=== PATIENT | male | born 1970 | race Caucasian/White ===

== ENCOUNTER 2020-10-29 06:21 | Day surgery (SDC) | payer MEDICAID ==
[2020-10-29] MEDS ORDERED: Sodium Chloride 0.9% 1,000 ML IV SCH (07:00)
[2020-10-29] MEDS ORDERED: Propofol 200 MG/20 ML SDV ONE (07:29)
[2020-10-29] MEDS ORDERED: fentaNYL 100 MCG/2 ML SDV ONE (07:29)
[2020-10-29] MEDS ORDERED: Midazolam 1 MG/ML 2 ML SDV ONE (07:29)
--- NOTE | 2020-10-29 13:48 | OR ---
DATE OF PROCEDURE: 10/29/2020 SURGEON: Markus Christianson MD PROCEDURE: Colonoscopy. FINDINGS: Normal colonoscopy. COMPLICATIONS: None. IT SERVICE TECHNICIAN: None. PREOPERATIVE DIAGNOSIS: Screening colonoscopy. POSTOPERATIVE DIAGNOSIS: Screening colonoscopy. RISKS: Risks, benefits, alternatives, and limitations including, but not limited to infection, bleeding, perforation, false positives and false negatives were explained to the patient who wished to proceed. PROCEDURE IN DETAIL: The patient was placed in left lateral decubitus position. Digital rectal exam was performed without abnormality. The scope was introduced and advanced atraumatically to the ileocecal valve. Photo was taken. The scope was brought back to the ascending, transverse, descending colon, and retroflexed. No old or new blood. No masses. No polyps. No diverticulosis. No abnormalities on retroflexion. Greater than 8 minutes was spent removing the scope. The patient tolerated the procedure well. The prep was acceptable, approximately 95% of luminal surface could be seen. The patient tolerated the procedure well. Markus Christianson MD /[id number]
== END 2020-10-29 09:38 | disposition home or self-care (01) ==
LOC: JP.SDS 06:21
PROVIDERS: ATTEND Surgery
DX: Z12.11 Encounter for screening for malignant neoplasm of colon (principal); Z88.1 Allergy status to other antibiotic agents
CPT/HCPCS: J2250; J2704; J3010; J7030

== ENCOUNTER 2022-05-06 16:24 | Emergency (ER) | payer MEDICAID ==
[2022-05-06] MEDS ORDERED: Diazepam 5 MG Tab PO ONE (17:44)
== END 2022-05-06 18:57 | disposition home or self-care (01) ==
LOC: JP.ED 16:24
DX: F41.0 Panic disorder [episodic paroxysmal anxiety] (principal); K51.919 Ulcerative colitis, unspecified with unspecified complications; F39 Unspecified mood [affective] disorder; F43.0 Acute stress reaction; Z88.0 Allergy status to penicillin
CPT/HCPCS: 36415; 80048; 83735; 84443; 85025; 93005; 99283; A9270